=== PATIENT | female | born 1945 | race Caucasian/White ===

== ENCOUNTER 2023-10-19 10:53 | Emergency (ER) | payer MEDICARE, BC ==
[~2023-10-19] VITALS: Ht 167.6 cm; Wt 85.1 kg
[2023-10-19] MEDS ORDERED: LASI20TA3 PO (11:11)
[2023-10-19] MEDS ORDERED: JANU100T PO (11:11)
[2023-10-19] MEDS ORDERED: ELIQ5TAB PO (11:11)
[2023-10-19] MEDS ORDERED: LOSA25TA13 PO (11:11)
[2023-10-19] MEDS ORDERED: DULO1CAP4 PO (11:11)
[2023-10-19] MEDS ORDERED: METO50TA7 PO (11:11)
[2023-10-19] MEDS ORDERED: SOTA80TA2 PO (11:11)
[2023-10-19] MEDS ORDERED: GLIP10TA PO (11:11)
[2023-10-19] MEDS ORDERED: OMEP40CA4 PO (11:11)
[2023-10-19] MEDS ORDERED: ATRO0.063 INH (11:11)
[2023-10-19] MEDS ORDERED: ATOR40TA75 PO (11:11)
[2023-10-19] MEDS ORDERED: LYRI75CA PO (11:11)
[2023-10-19] MEDS ORDERED: POTA-149 PO (11:11)
[2023-10-19] MEDS ORDERED: JARD1TAB PO (11:11)
[2023-10-19] MEDS: GLUCAGON INJ 1MG VIAL IM STA (11:36)
[2023-10-19] MEDS: ONDANSETRON 4MG ORAL DISINTEGRATING TAB PO ONE (14:17)
[2023-10-19] MEDS: MORPHINE 2 MG/ML 1ML VIAL IM ONE (14:18)
[2023-10-19 14:56] VITALS: BP 161/74; TEMP 97.9; O2SAT 99
== END 2023-10-19 16:25 | disposition short-term general hospital (02) ==
LOC: M ED 10:53
DX: T18.128A Food in esophagus causing other injury, initial encounter (principal); K22.2 Esophageal obstruction; I48.91 Unspecified atrial fibrillation; K21.9 Gastro-esophageal reflux disease without esophagitis; Z79.01 Long term (current) use of anticoagulants; Z79.84 Long term (current) use of oral hypoglycemic drugs; Z79.899 Other long term (current) drug therapy
CPT/HCPCS: 71046; 93005; 96372; 99284; J1610